=== PATIENT | male | born 1985 | race Caucasian/White ===

== ENCOUNTER 2017-02-10 15:16 | Emergency (ER) | payer MEDICAID, OTHER ==
[2017-02-10 15:30] VITALS: BP 135/74
[2017-02-10] MEDS ORDERED: Acyclovir 200 MG Cap PO ONE (15:43)
[2017-02-10] MEDS ORDERED: Acetaminophen/oxyCODONE 325-5 MG Tab PO ONE (15:44)
[2017-02-10] MEDS ORDERED: Triamcinolone Acetonide 40 MG/ML 1 ML MDV INJECT ONE (15:45)
--- NOTE | 2017-02-10 15:49 | EDM.PDOC ---
ED HPI GENERAL MEDICAL PROBLEM - General Chief Complaint: Skin Complaint Stated Complaint: POSSIBLE SHINGLES Time Seen by Provider: 02/10/17 15:40 Source of Information: Reports: Patient History Limitations: Reports: No Limitations - History of Present Illness INITIAL COMMENTS - FREE TEXT/NARRATIVE: pt is at the [facility] and he has developed a rash on the left side of his face and this has been very painful. This started 2-3 days ago and it has gotten progrssively more painful. Onset: Gradual, Other (past 3 days. ) Duration: Day(s):, Getting Worse Location: Reports: Face Associated Symptoms: Reports: Rash - Related Data Allergies Allergy/AdvReac Type Severity Reaction Status Date / Time No Known Allergies Allergy Verified 02/10/17 15:38 Home Meds: Home Meds NK [No Known Home Meds] 02/10/17 [History] Past Medical History - Past Health History Medical/Surgical History: Denies Medical/Surgical History Musculoskeletal History: Reports: Fracture - Infectious Disease History Infectious Disease History: Reports: Chicken Pox Social & Family History - Tobacco Use Smoking Status *Q: Current Every Day Smoker Years of Tobacco use: 7 Packs/Tins Daily: 0.2 Used Tobacco, but Quit: No Second Hand Smoke Exposure: Yes - Alcohol Use Days Per Week of Alcohol Use: 0 - Recreational Drug Use Recreational Drug Use: Yes Drug Use in Last 12 Months: Yes Recreational Drug Type: Reports: Marijuana/Hashish Recreational Drug Use Frequency: Not Used In Over 6 Months Recreational Drug Last Use: 5 years ago ED ROS GENERAL - Review of Systems Review Of Systems: See Below Constitutional: Reports: No Symptoms HEENT: Reports: Other ( rash on the left side of his face near the eye but not involing the eye. ) Respiratory: Reports: No Symptoms Cardiovascular: Reports: No Symptoms Endocrine: Reports: No Symptoms GI/Abdominal: Reports: No Symptoms : Reports: No Symptoms Musculoskeletal: Reports: No Symptoms Skin: Reports: Rash Neurological: Reports: No Symptoms ED EXAM, SKIN/RASH Exam: See Below Text/Narrative:: pt arrived having alot of left sided facial pain. He has a rash which is shingles like . This extends down to the mouth and he does have lesions in the mouth. He has alot of pain in the ear. I believe this is refered, I do not see a lesion in the ear. He has several lesions up in the forehead and and in the hairline. Exam Limited By: No Limitations General Appearance: Alert, Anxious, Other ( There does not appear to be involvement of the eye on the left. ) Ears: Normal TMs Nose: Normal Inspection Throat/Mouth: Normal Inspection Head: Atraumatic, Other ( rash extends on the left side of his face. ) Neck: Normal Inspection Respiratory/Chest: No Respiratory Distress Cardiovascular: Regular Rate, Rhythm GI/Abdominal: Soft, Non-Tender (Male) Exam: Deferred Rectal (Males) Exam: Deferred Back Exam: Normal Inspection Extremities: Normal Inspection Neurological: Alert, Oriented, Normal Cognition Psychiatric: Anxious Skin: Zoster-Like Rash Course - Vital Signs Last Recorded V/S: Last Vital Signs Temp 36.3 C 02/10/17 15:40 Pulse 60 02/10/17 15:40 Resp 20 02/10/17 15:40 BP 135/74 02/10/17 15:40 Pulse Ox 97 02/10/17 15:40 - Orders/Labs/Meds Meds: Medications Discontinued Medications Generic Name Dose Route Start Last Admin Trade Name Samia PRN Reason Stop Dose Admin Acyclovir 600 mg 02/10/17 15:43 02/10/17 16:05 Zovirax PO 02/10/17 15:44 600 mg ONETIME ONE Administration Oxycodone/Acetaminophen 1 tab 02/10/17 15:44 02/10/17 16:04 Percocet 325-5 Mg PO 02/10/17 15:45 1 tab ONETIME ONE Administration Triamcinolone Acetonide 60 mg 02/10/17 15:45 02/10/17 16:04 Kenalog-40 INJECT 02/10/17 15:46 60 mg ASDIRECTED ONE Administration - Re-Assessments/Exams Free Text/Narrative Re-Assessment/Exam: 02/10/17 16:02 pt was given kenalog 60mg im and zovirax 600mg now. He was also given a percocet 5/325 Departure - Departure Time of Disposition: 15:46 Disposition: Home, Self-Care 01 Condition: Fair Clinical Impression: Shingles rash - Discharge Information Instructions: Shingles, [id number] Referrals: PCP,None [Primary Care Provider] - Forms: ED Department Discharge Care Plan Goals: viroptic eye drops in left eye tid for 5 days, predisone 20mg daily for 5 days , zovirax 400ng tid for 1 week. tramodol 50mg q6h prn for pain.
== END 2017-02-10 16:15 | disposition home or self-care (01) ==
LOC: JP.ED 15:16
DX: B02.9 Zoster without complications (principal); F17.210 Nicotine dependence, cigarettes, uncomplicated
CPT/HCPCS: 96372; 99283; A9270; J3301